=== PATIENT | male | born 1950 | race Caucasian/White ===

== ENCOUNTER 2017-01-12 13:05 | Emergency (ER) | payer OTHER | END 2017-01-12 14:21 | disposition home or self-care (01) | LOC: ER 13:05 | DX: S16.1XXA Strain of muscle, fascia and tendon at neck level, initial encounter (principal); S46.912A Strain of unspecified muscle, fascia and tendon at shoulder and upper arm level, left arm, initial encounter; I10 Essential (primary) hypertension; V89.9XXA Person injured in unspecified vehicle accident, initial encounter | CPT/HCPCS: 72125; 73030-LT; 99284; A9270-GY ==